=== PATIENT | male | born 1970 | race Caucasian/White ===

== ENCOUNTER 2019-03-15 22:06 | Emergency (ER) | payer BC ==
[~2019-03-15] VITALS: Ht 172.7 cm; Wt 70.5 kg
[2019-03-15 22:14] VITALS: BP 99/72; TEMP 97.1
[2019-03-15] MEDS ORDERED: AMOXICILLIN875 MG PO (22:17)
[2019-03-15] MEDS ORDERED: PREDNISONE20 MG PO (22:38)
[2019-03-15 22:48] LABS: BASO % 0.1 % (0.0-2.0); EOS # 0.1 (0.0-0.7); EOS % 0.8 % (0-4.0); GRAN # 6.1 (1.4-6.5); GRAN % 84.2 % (42.2-75.2); HEMATOCRIT 49.2 % (42.0-52.0); LYMPH # 0.8 (1.2-3.4); LYMPH % 10.7 % (20.0-51.0); MEAN CELL VOLUME 88 fl (80.0-100.0); MEAN CORPUSCULAR HEMOGLOBIN 31 pg (27.0-31.0); MEAN CORPUSCULAR HGB CONC 35 g/dl (33.0-37.0); MEAN PLATELET VOLUME 9.7 fl (7.4-10.4); MONO # 0.3 (0.1-0.6); MONO % 3.4 % (1.7-9.3); PLATELET COUNT 158 K/mm3 (130-400); RED BLOOD COUNT 5.57 M/mm3 (4.20-5.60); REDCELL DISTRIBUTION WIDTH-CV 12.6 % (11.5-14.5)
[2019-03-15 22:57] LABS: BILIRUBIN,TOTAL 0.8 mg/dL (0.0-1.0); POTASSIUM 3.7 mmol/L (3.4-5.0); TOTAL PROTEIN 6.9 gm/dL (6.4-8.2)
[2019-03-15 23:45] VITALS: PULSE 66
== END 2019-03-15 23:45 | disposition home or self-care (01) ==
LOC: COL.ER 22:06
PROVIDERS: Emergency Medicine
DX: R19.7 Diarrhea, unspecified (principal); R11.2 Nausea with vomiting, unspecified; R10.9 Unspecified abdominal pain
CPT/HCPCS: J1200; J2405; J2930; J7030